=== PATIENT | female | born 1945 | race Caucasian/White ===

== ENCOUNTER 2024-09-15 11:25 | Emergency (ER) | payer MEDICARE, OTHER, SELFPAY ==
[2024-09-15 11:34] VITALS: BP 109/67
--- NOTE | 2024-09-15 13:25 | ED.GENMED ---
History of Present Illness
General
Chief Complaint: Breathing Problem
Source: patient
Exam Limitations: none
Time Seen by Provider: 09/15/24 13:05
Nursing documentation reviewed up to this point in time: agreed with
History of Present Illness
History of Present Illness:
78 y/o F with h/o NIDDM, HTN, HLD, nonsmoker
had symtoms start on 09/04 with sneezing/runny nose; her hsuband is in a NH and the NH had covid outbreak. pt says she tested pos with home test 09/05. she says she had progression of sxs, starting with sore throat, low grade fever, nasal
congestion and then progressed to a cough. pt says her cough is mostly dry. she called her doctor and got a rx for tessalon which she started taking about 1 week after symptoms started. she says she was overall feelin better unti lthis morning
when she felt more sob and noticed a high pitched sound at the end of expoiration sometimes
she has no lung disease
she felt some mild sob and chest heaviness too today
it idoes not get worse with exertion
no new fever, hemotpysis, leg sweling, vomiting
she has also been constipated x 5 days, has had issue with constipation over the past few months and takes colace daily and sometimes a half or quarter dose of miralax
last bm 5 days ago
less appetite than usual but able to eat
no abd pain
Past History
Past History
ED Past Medical History: HTN, Hypercholesterolemia and NIDDM
Social History
Tobacco: Non-smoker
Alcohol: None
Drug: None
Personal:
Living: alone
Review of Systems
Review of Systems
Allergies reviewed?: Yes
All Other Systems: Not applicable
Phy Exam
Physical Exam
Physical Exam:
GENERAL: Alert , in no apparent distress
EYE: pupils equal and reactive
NECK: Supple
ENT: b/l TM s clear, pharynx erythematous but no tonsillar hypertrophy or exudates, slightly hoarse voice
CARDIAC: Regular rate and rhythm, no edema
LUNGS: wheezy soundin cough and occ end exp wheezes; no acute respiratory distress, no /rales/rhonchi, occ cough
ABDOMEN: Soft, without focal tenderness, no r/g, no cvat, normal bowel sounds
NEUROLOGICAL: Alert and oriented, no focal neuro deficits
SKIN: Warm and dry, skin intact.
MUSCULOSKELETAL: No edema, well perfused.
PSYCH: Normal and appropriate interaction.
Scores
Heart Failure Risk
Heart Failure Risk Score: Not Applicable
Course
Orders/Labs/Results
Orders:
Orders
09/15/24 11:27
EKG [Electrocardiogram (*1)] Urgent
Reason for Study: Shortness of Breath
EKG- Treatment ONCE
09/15/24 13:23
Albuterol Nebs [Ventolin Nebules] 2.5 mg INH R NOW STA
Dexamethasone Sod Phosphate [Decadron] 10 mg IV NOW STA
CR Abdomen - 2 Views Urgent
Reason For Exam: constipation
09/15/24 13:24
CR Chest - 2 Views Urgent
Comment:
Reason For Exam: covid 10 days ago; sob and cough today
09/15/24 13:40
Complete Blood Count/With Diff Urgent
Comprehensive Metabolic Panel Urgent
NT-proBNP Urgent
Troponin I Urgent
Abnormal Lab Results
09/15/24
13:40
RBC 3.92 L 10^6/uL
(4.20-5.40)
Hgb 11.4 L g/dL
(12.0-16.0)
Hct 33.5 L %
(37.0-47.0)
MPV 10.9 H fL
(7.4-10.4)
Abs Immat Gran (auto) 0.2 H 10^3/uL
(0-0.05)
Absolute Monos (auto) 0.8 H 10^3/uL
(0.1-0.6)
Immature Gran % 1.5 H %
(0-0.5)
Chloride 108 H mmol/L
(98-107)
Carbon Dioxide 19 L mmol/L
(22-30)
BUN 22 H mg/dl
(7-17)
09/15/24 13:40
09/15/24 13:40
Vital Signs
Initial and Last Documented VS:
Initial Vital Signs
Temp Pulse Resp BP Pulse Ox
98.5 F 92 18 109/67 99
09/15/24 11:34 09/15/24 11:34 09/15/24 11:34 09/15/24 11:34 09/15/24 11:34
Last Documented Vital Signs
Temp Pulse Resp BP Pulse Ox
98.5 F 75 26 109/67 96
09/15/24 11:34 09/15/24 14:00 09/15/24 14:00 09/15/24 11:34 09/15/24 14:00
MDM/Problems Addressed
Differential Diagnosis Includes:
asthmatic bronchtiis, pneumonia,
MDM/Problems Addressed:
78 y/o F with h/o htn hld dm
here with uri sxs covid + 10 days ago
still with cough and now sob todya with wheezing
mild wheezy cough on exam
nontoxic appearing
no hypoxia
w/u with labs, cxr, ekg, bnp, trop
cxr no infiltrate
pt had improvement with neb and steroids
d/c home with albuterol and steroids
if no improvement in 2 days can start z luigi.
*Critical Care Note
Total Time (30-74mins, 75-104mins- exclusive of procedures): Not Applicable
ED Attending Note
-
Portions of this chart may have been created with voice recognition software.� Occasional wrong word or��sound alike� substitutions may have occurred due to the inherent limitations of voice recognition software.
Discharge Plan
Departure
Patient Disposition: Home (Routine Discharge)
Date of Disposition: 09/15/24
Time of Disposition: 14:59
Patient with high blood pressure during this ER visit?: No
Covid-19: Not Applicable
Discharge Problem:
Asthmatic bronchitis
Instructions: Acute Bronchitis, Adult (DC)
Prescriptions:
New
prednisone 20 mg tablet
40 mg PO DAILY Qty: 8 0RF
albuterol sulfate 90 mcg/actuation HFA aerosol inhaler
2 puff inhalation Q6H PRN (Reason: shortness of breath or wheezing) Qty: 6.7 0RF
azithromycin [Zithromax] 250 mg tablet
See Rx Instructions .ROUTE .COMPLEX 6 Days Qty: 6 0RF
Rx Instructions:
TAKE 2 TABS PO DAY 1, THEN 1 PO DAILY X 4 DAYS
albuterol sulfate 2.5 mg/0.5 mL solution for nebulization
2.5 mg inhalation Q6H PRN (Reason: shortness of breath or wheezing) Qty: 30 0RF
No Action
atorvastatin 40 MG tablet
40 mg PO DAILY
vitamin B complex 1 TAB tablet
1 tab PO DAILY
fluoxetine 20 MG capsule
20 mg PO DAILY
metformin 500 MG tablet extended release 24 hr
1,000 mg PO DAILY
cholecalciferol (vitamin D3) [Vitamin D3] 2,000 UNIT capsule
2,000 unit PO DAILY
mupirocin 1 APPLIC ointment
1 applic intranasal BID Qty: 1 0RF
cyclosporine [Restasis MultiDose] 5.5 ML drops
5.5 ml OP PRN PRN (Reason: dry eyes)
celecoxib 200 MG capsule
200 mg PO DAILY Qty: 30 0RF
sennosides [senna] 1 TABLET tablet
2 tab PO BID 0RF
acetaminophen 325 MG tablet
650 mg PO QID 0RF
magnesium hydroxide 30 ML suspension
30 ml PO DAILYPRN PRN (Reason: constipation) 0RF
aspirin 325 MG tablet,delayed release (DR/EC)
325 mg PO DAILY 0RF
docusate sodium 100 MG capsule
100 mg PO BID 0RF
oxycodone 5 MG tablet
5 mg PO Q4HPRN PRN (Reason: moderate-severe pain) Qty: 60 0RF
Rx Instructions:
dx tka
ongoing
1 tab moderate pain or 2 if pain severe
lisinopril 5 MG tablet
2.5 mg PO DAILY Qty: 0 0RF
Rx Instructions:
2.5mg (1/2 tab daily)----hold systolic blood pressure <140
famotidine 20 MG tablet
20 mg PO HS Qty: 30 0RF
Rx Instructions:
take while on asa and celebrex
Referrals:
Jose Dalal MD [Family Provider] - Follow up in 2-3 days
Activity Restrictions/Additional Instructions:
YOUR SYPMTOMS SEEM TO BE CONSISTENT WITH ASTHAMTIC BRONCHITIS FOLLOWING YOUR COVID INFECTION
YOU HAD NO SIGN OF PNEUMONIA OR HEART FAILURE
TRY PREDNISONE 40 MG ONCE A DAY FOR 4 DAYS STARTING TOMORROW
ALBUTEROL 2 PUFFS EVERY 4-6 HOURS WITH THE SPACER FOR YOUR COUGH AND WHEEZING
IF IN A FEW DAYS YOU FEEL THAT THE BRONCHITIS IS GETTING WORSE, YOU CAN START THE ANTIBIOTIC ZITHROMAX
AND TAKE IT DIRECTED
OTHEWRISE SEE YOUR DOCTOR FOR FOLLOW UP
YOUR XRAY OF YOUR ABDOMEN SHOWS CONSTIPATION
TRY METAMUCIL ONCE A DAY AND MIRALAX TWICE A DAY FOR 2-3 DAYS TO SEE IF THIS EMPTIES YOU OUT.
Interventions
Interventions:
*Risk Screen - Suicide Last Done: 09/15/24 11:34
*General Assessment Last Done: 09/15/24 11:34
*Neglect/Abuse Screening Last Done: 09/15/24 11:34
ED- Fall Risk Assessment Last Done: 09/15/24 14:35
*ED COVID-19 Vaccine History Last Done: 09/15/24 14:35
*Nursing Disposition Last Done: 09/15/24 15:18
ED- Cardiac Assessment Last Done: 09/15/24 13:30
ED- Pulmonary Assessment Last Done: 09/15/24 13:30
Discharge Date and Time
Discharge Date/Time: 09/15/24 15:19
Print Language: SLOVENIAN
[2024-09-15] MEDS: DECADRON 10 MG IV (13:34)
[2024-09-15] MEDS: VENTOLIN NEBULES 2.5 MG INH (13:36)
[2024-09-15 13:47] LABS: % Basophils 0.5 % (0-2); % Immature Granulocytes 1.5 % (0-0.5); % Lymphocytes 28.1 % (20.5-51.1); % Monocytes 7.1 % (1.7-9.3); % Neutrophils 59.8 % (42.2-75.2); Absolute Basophils 0.1 10^3/uL (0-0.2); Absolute Eosinophils 0.3 10^3/uL (0-0.7); Absolute Immature Granulocytes 0.2 10^3/uL (0-0.05); Absolute Monocytes 0.8 10^3/uL (0.1-0.6); Absolute Neutrophils 6.5 10^3/uL (1.4-6.5); Hematocrit 33.5 % (37.0-47.0); Hemoglobin 11.4 g/dL (12.0-16.0); Mean Corpuscular Hgb 29.1 pg (27.0-31.0); Mean Corpuscular Volume 85.5 fL (81.0-99.0); Mean Platelet Volume 10.9 fL (7.4-10.4); Nucleated Red Blood Cells % 0 %; Platelet Count 306 10^3/uL (130-400); Red Blood Cell Count 3.92 10^6/uL (4.20-5.40); Red Cell Dist. Width 13.6 % (11.5-14.5); White Blood Cell Count 10.8 10^3/uL (4.8-10.8)
[2024-09-15 14:09] LABS: ALT (SGPT) 19 U/L (0-35); AST (SGOT) 23 U/L (14-36); Albumin 4.1 g/dl (3.5-5.0); Alkaline Phosphatase 59 U/L (38-126); Blood Urea Nitrogen 22 mg/dl (7-17); Calcium 9.9 mg/dl (8.4-10.2); Carbon Dioxide 19 mmol/L (22-30); Chloride 108 mmol/L (98-107); Glucose 95 mg/dl (70-99); Potassium 4.4 mmol/L (3.5-5.1); Sodium 140 mmol/L (135-145); Total Bilirubin 0.4 mg/dl (0.2-1.3); eGFR > 60.00
[2024-09-15 14:11] LABS: NT-proBNP 33.1 pg/ml; Troponin I < 0.012 ng/ml
[2024-09-15 14:34] VITALS: BMI 24.7
== END 2024-09-15 15:19 | disposition home or self-care (01) ==
LOC: EMR 11:25
PROVIDERS: Physician Assistant; EMERGENCY PHYSICIAN Student in an Organized Health Care Education/Training Program; FAMILY PHYSICIAN Family Medicine
DX: J45.909 Unspecified asthma, uncomplicated (principal); E11.9 Type 2 diabetes mellitus without complications; E78.00 Pure hypercholesterolemia, unspecified; I10 Essential (primary) hypertension
CPT/HCPCS: 99285; 96374; 94640; 71046; 74019; 80053; 83880; 84484; 85025; 93005

== ENCOUNTER → 2024-11-05 13:49 | Outpatient (REF) | payer MEDICARE, OTHER, SELFPAY | LOC: WDC 13:49 | PROVIDERS: ATTENDING PHYSICIAN Obstetrics & Gynecology Gynecology; FAMILY PHYSICIAN Family Medicine | DX: Z12.31 Encounter for screening mammogram for malignant neoplasm of breast (principal) | CPT/HCPCS: 77063; 77067 ==

== ENCOUNTER → 2025-11-06 14:45 | Outpatient (REF) | payer MEDICARE, OTHER, SELFPAY | LOC: WDC 14:45 | PROVIDERS: ATTENDING PHYSICIAN Obstetrics & Gynecology Gynecology; FAMILY PHYSICIAN Family Medicine | DX: Z12.31 Encounter for screening mammogram for malignant neoplasm of breast (principal) | CPT/HCPCS: 77063; 77067 ==